=== PATIENT | female | born 1990 | race Two or more races ===

== ENCOUNTER 2025-01-15 08:42 | Emergency (ER) | payer BC, OTHER ==
[~2025-01-15] VITALS: Ht 167.6 cm; Wt 68.0 kg
[2025-01-15 09:29] LABS: BASOPHILS # (AUTO) 0.1 K/UL (0.0-0.2); BASOPHILS % (AUTO) 0.8 % (0.0-2.0); EOSINOPHILS # (AUTO) 0.1 K/uL (0.0-0.7); HEMATOCRIT 38.3 % (31.2-41.9); LYMPHOCYTES # (AUTO) 1.6 K/uL (0.8-4.8); LYMPHOCYTES % (AUTO) 20.4 % (20.5-51.5); MEAN CORPUSCULAR HEMOGLOBIN 27.7 uug (24.7-32.8); MEAN CORPUSCULAR HGB CONC 34 g/dL (32.3-35.6); MEAN CORPUSCULAR VOLUME 81.8 fL (75.5-95.3); MONOCYTES # (AUTO) 0.4 K/uL (0.1-1.30); MONOCYTES % (AUTO) 5.1 % (0.0-11.0); NEUTROPHILS # (AUTO) 5.9 K/uL (1.8-8.9); NEUTROPHILS % (AUTO) 72.7 % (38.5-71.5); PLATELET COUNT (AUTO) 301 K/uL (179-408); RED BLOOD CELL COUNT(AUTO) 4.69 MIL/uL (3.63-4.92); WHITE BLOOD COUNT (AUTO) 8.1 K/uL (3.8-11.8)
[2025-01-15 09:37] LABS: DIFFERENTIAL COMMENT 1
[2025-01-15 10:04] LABS: CALCIUM 8.9 mg/dL (8.5-10.1); CREATININE 0.6 mg/dL (0.6-1.3); POTASSIUM 3.7 mmol/L (3.5-5.1)
[2025-01-15 10:10] LABS: ALBUMIN 3.6 g/dL (3.4-5.0); BILIRUBIN,DIRECT 0.2 mg/dL (0.0-0.2); BILIRUBIN,TOTAL 0.6 mg/dL (0.2-1.0); TOTAL PROTEIN, SERUM 7.5 g/dL (6.4-8.2)
[2025-01-15] MEDS ORDERED: IBUP-1955 PO (10:42)
[2025-01-15] MEDS ORDERED: CEPH500T PO (10:42)
[2025-01-15 10:53] VITALS: BP 110/73; O2SAT 99
== END 2025-01-15 10:53 | disposition home or self-care (01) ==
LOC: ER 08:47
DX: N63.22 Unspecified lump in the left breast, upper inner quadrant (principal); N64.4 Mastodynia; Z88.7 Allergy status to serum and vaccine
CPT/HCPCS: 36415; 76642; 85025; 86140; A4606; A4663